=== PATIENT | female | born 1975 | race Caucasian/White ===

== ENCOUNTER 2024-08-18 05:03 | Day surgery (SDC) | payer OTHER ==
[2024-08-10 13:15] VITALS: BP 125/83
[~2024-08-18] VITALS: Ht 160 cm; Wt 86.2 kg
[~2024-08-18 05:03] MED LIST: COZAAR25 MG
[2024-08-18] MEDS ORDERED: CEFTRIAXONE SODIUM 2,000 MG VIAL ONE (08:13)
[2024-08-18] MEDS ORDERED: METRONIDAZOLE/SODIUM CHLORIDE 500 MG/100 ML PIGGYBACK IV ONE ×2 (08:13→09:30)
[2024-08-18] MEDS ORDERED: POVIDONE-IODINE 118 ML BOTT TOP ONE ×2 (08:30→09:30)
[2024-08-18] MEDS ORDERED: HEMOSTATIC MATRIX 1 KIT KIT TOP ONE ×2 (08:30→09:30)
[2024-08-18] MEDS ORDERED: DIBUCAINE 30 GM TUBE ONE (08:30)
[2024-08-18] MEDS ORDERED: LIDOCAINE HCL 1%/EPINEPHRINE 20ML VIAL IJ ONE (09:30)
[2024-08-18] MEDS ORDERED: DIBUCAINE 30 GM TUBE RECTAL ONE (09:30)
[2024-08-18] MEDS ORDERED: BUPIVACAINE HCL 30 ML VIAL IJ ONE (09:30)
[2024-08-18] MEDS ORDERED: CEFTRIAXONE SODIUM 2,000 MG VIAL IV ONE (09:30)
[2024-08-18] MEDS ORDERED: NEURONTIN300 MG PO (09:59)
[2024-08-18] MEDS ORDERED: CELECOXIB200 MG PO (09:59)
[2024-08-18] MEDS ORDERED: TRAMADOL HCL50 MG PO (10:25)
== END 2024-08-18 14:45 | disposition home or self-care (01) ==
LOC: CIR.AMB 05:03
PROVIDERS: ATTEND Surgery
DX: K62.82 Dysplasia of anus (principal); A63.0 Anogenital (venereal) warts; K64.8 Other hemorrhoids; Z88.5 Allergy status to narcotic agent; Z88.6 Allergy status to analgesic agent